=== PATIENT | male | born 1955 | race Caucasian/White ===

== ENCOUNTER 2022-11-18 08:14 | Emergency (ER) | payer MEDICARE, OTHER ==
[~2022-11-18] VITALS: Ht 172.7 cm; Wt 131.0 kg
[2022-11-18 08:23] VITALS: BP 134/84
[2022-11-18] MEDS ORDERED: SIMVASTATIN10 MG PO (08:34)
[2022-11-18] MEDS ORDERED: ASPIRIN81 MG PO (08:34)
[2022-11-18] MEDS ORDERED: TAMSULOSIN HCL0.4 MG PO (08:35)
[2022-11-18] MEDS ORDERED: LISINOPRIL10 MG PO (08:35)
[2022-11-18] MEDS ORDERED: NORVASC5 M1 PO (08:36)
[2022-11-18] MEDS ORDERED: DOXY-CAPS100 MG PO (09:28)
[2022-11-18] MEDS ORDERED: [UNRECOGNIZED DRUG - OTHER] PO (09:47)
== END 2022-11-18 09:52 | disposition home or self-care (01) ==
LOC: ED 08:14
DX: J06.9 Acute upper respiratory infection, unspecified (principal); I10 Essential (primary) hypertension

== ENCOUNTER 2023-12-11 16:40 | Observation (INO) | payer MEDICARE, OTHER ==
[2023-12-11] VITALS (25 sets, daily range): BP systolic 58–137; BP diastolic 32–82
[~2023-12-11] VITALS: Ht 177.8 cm; Wt 133.2 kg
[~2023-12-11 16:40] MED LIST: ASPIRIN81 MG PO; DOXY-CAPS100 MG PO; LISINOPRIL10 MG PO; NORVASC5 M1 PO; SIMVASTATIN10 MG PO; TAMSULOSIN HCL0.4 MG PO; [UNRECOGNIZED DRUG - OTHER] PO
[2023-12-11] MEDS ORDERED: METOPROLOL100 M1 PO (17:06)
[2023-12-11] MEDS ORDERED: CENTRUM SILVER1 TA2 (17:07)
[2023-12-11] MEDS ORDERED: PRILOSEC20 MG/CAP PO (17:07)
[2023-12-11 17:34] LABS: BASO% 0.5 % (0-3); EOS% 3.9 % (0-8); HEMOGLOBIN 15.6 g/dl (14.0-18.0); IMMATURE GRANULOCYTES 0.2 % (0.0-5.0); LYMPH% 25.4 % (15-41); MEAN CORPUSCULAR HGB 27.6 pG CALC (26.0-32.0); MEAN CORPUSCULAR HGB CONC 32.5 g/dL CAL (32.0-36.0); MONO% 7.7 % (2-13); NEUT# 3.5 thou/uL (1.82-7.42); NEUT% 62.3 % (42-76); RED BLOOD COUNT 5.65 mill/uL (4.70-6.10); RED CELL DISTRI WIDTH 12.6 % (11.5-15.5)
[2023-12-11 17:49] LABS: ALBUMIN 4.3 g/dL (3.2-5.0); ALKALINE PHOSPHATASE 68 u/l (38-126); ANION GAP 10 (6-22 (CALC)); BILIRUBIN, TOTAL 0.6 mg/dL (0.2-1.3); BUN 22 mg/dL (8-23); BUN/CREATININE RATIO 18 (12-20 (CALC)); CARBON DIOXIDE 26 mmol/l (22-30); CHLORIDE 107 mmol/l (95-108); CREATININE 1.2 mg/dL (0.7-1.3); GFR FOR AFR.AMER. > 60 ML/MIN (>=60 (CALC)); GFR OTHER RACES 60 ML/MIN (>=60 (CALC)); LIPASE 123 u/l (23-300); POTASSIUM 3.5 mmol/l (3.5-5.1); SGOT/AST 41 u/l (19-48); SODIUM 141 mmol/l (137-146)
[2023-12-11 20:04] LABS: URINE BILIRUBIN - DIPSTICK Negative (NEGATIVE); URINE BLOOD DIPSTICK Negative (NEGATIVE); URINE GLUCOSE - DIPSTICK Negative (NEGATIVE); URINE KETONE Negative (NEGATIVE); URINE LEUK ESTERASE Negative (NEGATIVE); URINE NITRITE - DIPSTICK Negative (Negative); URINE PROTEIN - DIPSTICK Negative (NEG-TRACE); URINE SPECIFIC GRAVITY >=1.030; URINE UROBILINOGEN - DIPSTICK 0.2 E.U./dL (0.2)
[2023-12-11 20:07] LABS: URINE COLOR Yellow
[2023-12-12] VITALS (16 sets, daily range): BP systolic 102–138; BP diastolic 57–92
[2023-12-12 04:04] LABS: MAGNESIUM 2.1 mg/dL (1.6-2.3)
[2023-12-12] MEDS ORDERED: NITROSTAT0.4 MG SL (13:07)
[2023-12-12] MEDS ORDERED: PROTONIX40 MG PO (13:08)
== END 2023-12-12 13:53 | disposition home or self-care (01) ==
LOC: ED 16:40 → ED-I 21:18 → MS2 12-12 06:57
PROVIDERS: Nurse Practitioner; ADMIT Internal Medicine; ATTEND Internal Medicine
DX: R07.9 Chest pain, unspecified (principal); I10 Essential (primary) hypertension; E78.5 Hyperlipidemia, unspecified; K21.9 Gastro-esophageal reflux disease without esophagitis; N40.0 Benign prostatic hyperplasia without lower urinary tract symptoms

== ENCOUNTER 2025-01-05 23:27 | Emergency (ER) | payer MEDICARE, OTHER ==
[~2025-01-05] VITALS: Ht 177.8 cm; Wt 130.0 kg
[~2025-01-05 23:27] MED LIST changes: +CENTRUM SILVER1 TA2; +METOPROLOL100 M1 PO; +NITROSTAT0.4 MG SL; +PRILOSEC20 MG/CAP PO; +PROTONIX40 MG PO
[2025-01-06] MEDS ORDERED: HYDROcodone POLISTIREX/CHLORPH 5 ML UDC PO ONE (00:45)
[2025-01-06 00:55] LABS: BASO% 0.5 % (0-3); EOS% 5.6 % (0-8); HEMATOCRIT 43.7 % (39.0-50.0); HEMOGLOBIN 14.4 g/dl (14.0-18.0); IMMATURE GRANULOCYTES 0.1 % (0.0-5.0); LYMPH% 20.6 % (15-41); MEAN CELL VOLUME 87.2 fL CALC (80.0-100.0); MEAN CORPUSCULAR HGB 28.7 pG CALC (26.0-32.0); NEUT# 4.92 thou/uL (1.82-7.42); NEUT% 65.2 % (42-76); RED BLOOD COUNT 5.01 mill/uL (4.70-6.10); RED CELL DISTRI WIDTH 12.5 % (11.5-15.5)
[2025-01-06] MEDS ORDERED: HYDROCODONE POLISTIR PO (02:30)
[2025-01-06 02:42] VITALS: BP 139/84
== END 2025-01-06 02:42 | disposition home or self-care (01) ==
LOC: ED 23:27
PROVIDERS: Family Medicine
DX: J06.9 Acute upper respiratory infection, unspecified (principal); I10 Essential (primary) hypertension; Z20.822 Contact with and (suspected) exposure to COVID-19